=== PATIENT | male | born 1935 | race Caucasian/White ===

== ENCOUNTER 2023-02-07 10:18 | Outpatient (CLI) | payer OTHER, SELFPAY ==
--- NOTE | ~2023-02-07 | CT_ITS ---
EXAMINATION: CT brain wo con DATE: 02/07/2023 10:42 INDICATION: Head injury. TECHNIQUE: Computed tomography (CT) of the head was performed without intravenous contrast. The mA wa s adjusted according to patient size. Iterative reconstruction technique was employed. The dose-lengt h product was 605.33 mGy-cm. COMPARISON: None FINDINGS: There are scattered areas of low attenuation in the cerebral white matter. There is no intr acranial hemorrhage, acute infarction, or abnormal intracranial mass lesion. The ventricles are jorge l in size. There are likely changes of ocular lens replacement surgeries. There is mild mucosal thick ening in the paranasal sinuses. The mastoid air cells are normal. IMPRESSION: 1. Moderate nonspecific cerebral white matter disease, which likely represents chronic small vessel i schemic disease. Reviewed, dictated and finalized at location A. IMPRESSION: 1. Moderate nonspecific cerebral white matter disease, which likely represents chronic small vessel ischemic disease.
--- NOTE | ~2023-02-07 | CT_ITS ---
EXAMINATION: CT cervical spine wo con DATE: 02/07/2023 10:43 INDICATION: Neck stiffness post fall with head injury and syncope TECHNIQUE: Computed tomography (CT) of the cervical spine was performed without intravenous contrast. Automated exposure control and iterative reconstruction technique were employed. The dose-length pro duct was 288.36 mGy-cm. COMPARISON: None FINDINGS: Mild reversal of the normal cervical lordosis. Vertebral body heights are normal. No fracture. Severe osteoarthritis at the atlantoaxial articulation. Moderate to severe disc height loss at C5-C6. Moder ate disc height loss at C3-C4, C4-C5 and C6-C7. Mild disc height loss at C2-C3, C7-T1 and T1-T2. Athe rosclerotic calcifications at the bilateral carotid bulbs. Mild right apical pleural-parenchymal scar ring. The following disc levels are specifically discussed: C2-C3: Disc is bulging. There is mild bilateral uncovertebral joint osteoarthritis. There is mild rig ht and severe left facet joint osteoarthritis. There is mild left and minimal right neural foraminal stenosis. There is mild central canal stenosis. C3-C4: Disc is bulging. There is moderate left and severe right uncovertebral joint osteoarthritis. T here is moderate right and severe left facet joint osteoarthritis. There is moderate left and mild to moderate right neural foraminal stenosis. There is mild to moderate central canal stenosis. C4-C5: Posterior disc osteophyte complex. There is moderate right and severe left uncovertebral joint osteoarthritis. There is moderate bilateral facet joint osteoarthritis. There is mild right and mild to moderate left neural foraminal stenosis. There is mild central canal stenosis. C5-C6: Posterior disc osteophyte complex. There is severe bilateral uncovertebral joint osteoarthriti s. There is mild bilateral facet joint osteoarthritis. There is moderate right and mild to moderate l eft neural foraminal stenosis. There is mild to moderate central canal stenosis. C6-C7: Disc is bulging. There is severe bilateral uncovertebral joint osteoarthritis. There is mild b ilateral facet joint osteoarthritis. There is mild to moderate bilateral neural foraminal stenosis. T here is mild central canal stenosis. C7-T1: The disc does not extend beyond the endplate margin. There is mild bilateral uncovertebral david nt osteoarthritis. There is moderate bilateral facet joint osteoarthritis. There is minimal bilateral neural foraminal stenosis. There is no central canal stenosis. IMPRESSION: 1. Moderate to severe cervical spondylosis. No acute osseous abnormality. Reviewed, dictated and finalized at location L.
== END 2023-02-07 10:19 | disposition home or self-care (01) ==
PROVIDERS: Visit Provider Emergency Medicine
DX: R55 Syncope and collapse (principal); R90.82 White matter disease, unspecified; M43.02 Spondylolysis, cervical region
CPT/HCPCS: 70450; 72125